=== PATIENT | male | born 1985 | race African-American/Black ===

== ENCOUNTER 2021-10-17 22:08 | Emergency (ER) | payer MEDICAID ==
[~2021-10-17] VITALS: Ht 144.8 cm; Wt 45.0 kg
[2021-10-18 01:45] VITALS: BP 119/89
[2021-10-18] MEDS ORDERED: IBUPROFEN 800MG TABLET PO ONE (01:45)
[2021-10-18] MEDS ORDERED: HYDROCODONE/ACETAMINOPHEN 10/325MG TABLET PO ONE (01:45)
[2021-10-18] MEDS ORDERED: CYCL10TA21 MT (01:45)
[2021-10-18] MEDS ORDERED: ACET-2708 MT (01:45)
[2021-10-18] MEDS ORDERED: IBUP-2030 MT (01:45)
== END 2021-10-18 02:00 | disposition home or self-care (01) ==
LOC: ER 22:08
DX: S73.102A Unspecified sprain of left hip, initial encounter (principal); M25.552 Pain in left hip; M54.30 Sciatica, unspecified side; M41.9 Scoliosis, unspecified; X58.XXXA Exposure to other specified factors, initial encounter; Y93.9 Activity, unspecified; Y92.9 Unspecified place or not applicable
CPT/HCPCS: 99283